=== PATIENT | male | born 1960 | race Caucasian/White ===

== ENCOUNTER 2017-08-26 20:20 | Emergency (ER) | payer SELFPAY ==
[2017-08-26] MEDS ORDERED: Aspirin Low Dose CHEW TAB* 81 MG PO ONE (21:10)
--- NOTE | 2017-08-26 21:31 | RAD ---
INDICATION: Chest pain COMPARISON: May 09, 2009 TECHNIQUE: An AP portable view obtained at 2118 hours is submitted. FINDINGS: Bones/Soft Tissues: There are no acute bony findings. Cardiomediastinal: The cardiomediastinal silhouette is normal. Lungs: There are no infiltrates. Pleura: There are no pleural effusions. Other: None IMPRESSION: NO ACTIVE DISEASE.
[2017-08-26 22:14] LABS: Hematocrit 42 % (42-52); Hemoglobin 14.8 g/dl (14.0-18.0); Mean Corpuscular HGB Conc 35 g/dl (31-36); Mean Corpuscular Hemoglobin 32 pg (27-31); Mean Corpuscular Volume 89 fL (80-94); Mean Platelet Volume 7 um3 (7.4-10.4); Red Blood Count 4.68 10^6/ul (4.0-5.4); Red Cell Distribution Width 14 % (10.5-15); White Blood Count 10.9 10^3/ul (3.5-10.8)
[2017-08-26 22:29] LABS: Albumin 4.3 g/dL (3.2-5.2); BUN/Creatinine Ratio 8.6 (8-20); Calcium 9.5 mg/dL (8.6-10.3); EGFR African American 125.4 (>60); EGFR Non-African American 97.5 (>60); Magnesium 1.5 mg/dL (1.9-2.7); Potassium 2.9 mmol/L (3.5-5.0); Total Protein 7.3 g/dL (6.4-8.9)
[2017-08-26 22:31] LABS: Troponin I 0.01 ng/mL (<0.04)
[2017-08-27] MEDS ORDERED: Potassium Chlor TAB* 20 MEQ TAB.ER PO ONE (01:13)
[2017-08-27] MEDS ORDERED: KCL 10 MEQ/50 ML IVPREMIX* 10 MEQ/50 ML BAG IV ONE (01:13)
--- NOTE | 2017-08-27 02:40 | ED ---
Dheeraj Jordan Rebecca, scribed for Gilberto Salvador MD on 08/26/17 at 2043 . HPI Chest Pain - HPI Summary HPI Summary: Pt is a 57 y/o M BIBA who presents to ED c/o CP. Pain began at approximately 1330 and was initially intermittent, though it is now constant. Episodes would last about 20 seconds, then resolve for a few minutes. Pain is diffuse and currently moderate, ranked 7/10. Pain characterized as "muscles mercedes" and "pain that makes you want to cringe up and yell." [place] route [place] [facility] pt was given fluids, Zofran and Benadryl. Was not given ASA or NTG. Sx aggravated by exertion, alleviated by nothing, unchanged by deep breaths. Additionally c/o diaphoresis at onset of symptoms and N/V with about 10 episodes of emesis. Notes bilateral UE and LE tingling and myalgias. Denies SOB. SHx current smoker , has been smoking for 39 years. - History of Current Complaint Chief Complaint: EDChestPainROMI Hx Obtained From: Patient Onset/Duration: Still Present Time of Onset: 13:30 Current Severity: Moderate Pain Intensity: 7 Pain Scale Used: 0-10 Numeric Chest Pain Location: Diffuse Chest Pain Radiates: No Character: Pressure/Squeezing, Other: - "muscles mercedes" Aggravating Factor(s): Exertion Alleviating Factor(s): Nothing Associated Signs and Symptoms: Positive: Diaphoresis, Nausea, Vomiting, Other: - Bilateral UE and LE tingling, myalgias - Allergy/Home Medications Allergies/Adverse Reactions: Allergies Allergy/AdvReac Type Severity Reaction Status Date / Time Erythromycin Allergy Hives/Diff. Verified 08/26/17 20:41 Breathing/I tching Tetracyclines & Related Allergy GI Upset Verified 08/26/17 20:41 PMH/Surg Hx/FS Hx/Imm Hx Endocrine/Hematology History: Denies: Hx Diabetes Cardiovascular History: Reports: Hx Hypercholesterolemia, Hx Hypertension GI History: Reports: Hx Gastroesophageal Reflux Disease History: Reports: Other Problems/Disorders - Hemorrhoids Neurological History: Reports: Other Neuro Impairments/Disorders - Vertigo Infectious Disease History: No Infectious Disease History: Denies: Traveled Outside the [place] in Last 30 Days - Family History Known Family History: Positive: Hypertension, Other - Breast CA, multiple myeloma, polyneuropathy - Social History Alcohol Use: Occasionally Substance Use Type: Reports: Prescribed Smoking Status (MU): Current Every Day Smoker Review of Systems Positive: Skin Diaphoresis Positive: Chest Pain Negative: Shortness Of Breath Positive: Vomiting, Nausea Positive: Myalgia Neurological: Other - Bilateral UE and LE tingling All Other Systems Reviewed And Are Negative: Yes Physical Exam - Summary Physical Exam Summary: Appearance: Well-appearing, Well-nourished Skin: Warm, dry, no diaphoresis Eyes: Normal ENT: Normal Neck: Supple, nontender Respiratory: Clear to auscultation Cardiovascular: Normal, Normal S1 and S2, no murmurs Abdomen: Soft, nontender Bowel: Present Musculoskeletal: Normal, Strength/ROM Intact, Normal pulses in the bilateral radial and tibial areas Neurological: Normal, A&Ox3 Psychiatric: Normal Triage Information Reviewed: Yes Vital Signs On Initial Exam: Initial Vitals Temp Pulse Resp BP Pulse Ox 97.6 F 76 20 139/87 99 08/26/17 20:32 08/26/17 20:32 08/26/17 20:32 08/26/17 20:32 08/26/17 20:32 Vital Signs Reviewed: Yes Diagnostics - Vital Signs Vital Signs Temp Pulse Resp BP Pulse Ox 08/26/17 20:32 97.6 F 76 20 139/87 99 - Laboratory Lab Results: Lab Results 08/26/17 08/26/17 08/26/17 Range/Units 22:04 22:04 22:04 WBC 10.9 H (3.5-10.8) 10^3/ul RBC 4.68 (4.0-5.4) 10^6/ul Hgb 14.8 (14.0-18.0) g/dl Hct 42 (42-52) % MCV 89 (80-94) fL MCH 32 H (27-31) pg MCHC 35 (31-36) g/dl RDW 14 (10.5-15) % Plt Count 205 (150-450) 10^3/ul MPV 7 L (7.4-10.4) um3 Neut % (Auto) 79.0 (38-83) % Lymph % (Auto) 16.5 L (25-47) % Stoddard % (Auto) 3.6 (1-9) % Eos % (Auto) 0.1 (0-6) % Baso % (Auto) 0.8 (0-2) % Absolute Neuts (auto) 8.6 H (1.5-7.7) 10^3/ul Absolute Lymphs (auto) 1.8 (1.0-4.8) 10^3/ul Absolute Monos (auto) 0.4 (0-0.8) 10^3/ul Absolute Eos (auto) 0 (0-0.6) 10^3/ul Absolute Basos (auto) 0.1 (0-0.2) 10^3/ul Absolute Nucleated RBC 0 10^3/ul Nucleated RBC % 0 INR (Anticoag Therapy) 0.97 (0.89-1.11) APTT 28.8 (26.0-36.3) seconds Sodium 129 L (133-145) mmol/L Potassium 2.9 L (3.5-5.0) mmol/L Chloride 95 L (101-111) mmol/L Carbon Dioxide 26 (22-32) mmol/L Anion Gap 8 (2-11) mmol/L BUN 7 (6-24) mg/dL Creatinine 0.81 (0.67-1.17) mg/dL Est GFR ( Amer) 125.4 (>60) Est GFR (Non-Af Amer) 97.5 (>60) BUN/Creatinine Ratio 8.6 (8-20) Glucose 103 H (70-100) mg/dL Calcium 9.5 (8.6-10.3) mg/dL Magnesium 1.5 L (1.9-2.7) mg/dL Total Bilirubin 1.00 (0.2-1.0) mg/dL AST 17 (13-39) U/L ALT 23 (7-52) U/L Alkaline Phosphatase 69 (34-104) U/L CK-MB (CK-2) 2.0 (0.6-6.3) ng/mL Troponin I 0.01 (<0.04) ng/mL Total Protein 7.3 (6.4-8.9) g/dL Albumin 4.3 (3.2-5.2) g/dL Globulin 3.0 (2-4) g/dL Albumin/Globulin Ratio 1.4 (1-3) Blood Type Antibody Screen 08/26/17 08/27/17 Range/Units 22:04 00:07 WBC (3.5-10.8) 10^3/ul RBC (4.0-5.4) 10^6/ul Hgb (14.0-18.0) g/dl Hct (42-52) % MCV (80-94) fL MCH (27-31) pg MCHC (31-36) g/dl RDW (10.5-15) % Plt Count (150-450) 10^3/ul MPV (7.4-10.4) um3 Neut % (Auto) (38-83) % Lymph % (Auto) (25-47) % Stoddard % (Auto) (1-9) % Eos % (Auto) (0-6) % Baso % (Auto) (0-2) % Absolute Neuts (auto) (1.5-7.7) 10^3/ul Absolute Lymphs (auto) (1.0-4.8) 10^3/ul Absolute Monos (auto) (0-0.8) 10^3/ul Absolute Eos (auto) (0-0.6) 10^3/ul Absolute Basos (auto) (0-0.2) 10^3/ul Absolute Nucleated RBC 10^3/ul Nucleated RBC % INR (Anticoag Therapy) (0.89-1.11) APTT (26.0-36.3) seconds Sodium (133-145) mmol/L Potassium (3.5-5.0) mmol/L Chloride (101-111) mmol/L Carbon Dioxide (22-32) mmol/L Anion Gap (2-11) mmol/L BUN (6-24) mg/dL Creatinine (0.67-1.17) mg/dL Est GFR ( Amer) (>60) Est GFR (Non-Af Amer) (>60) BUN/Creatinine Ratio (8-20) Glucose (70-100) mg/dL Calcium (8.6-10.3) mg/dL Magnesium (1.9-2.7) mg/dL Total Bilirubin (0.2-1.0) mg/dL AST (13-39) U/L ALT (7-52) U/L Alkaline Phosphatase (34-104) U/L CK-MB (CK-2) (0.6-6.3) ng/mL Troponin I 0.01 (<0.04) ng/mL Total Protein (6.4-8.9) g/dL Albumin (3.2-5.2) g/dL Globulin (2-4) g/dL Albumin/Globulin Ratio (1-3) Blood Type B Positive Antibody Screen Negative Result Diagrams: 08/26/17 22:04 08/26/17 22:04 Lab Statement: Any lab studies that have been ordered have been reviewed, and results considered in the medical decision making process. - Radiology CXR Xray Interpretation: No Acute Changes - NO ACTIVE DISEASE. ED physician reviewed radiology report and agrees. Radiology Interpretation Completed By: Radiologist - EKG 2113 Cardiac Rate: NL - 67 bpm EKG Rhythm: Sinus Rhythm EKG Interpretation: Normal Re-Evaluation - Re-Evaluation First Eval Re-Evaluation Time: 01:22 Comment: Pt is doing well, he is chest pain free. Will get potassium supplementation and recommend cardiology followup. Chest Pain Course/Dx - Course Assessment/Plan: pt feels better after medicatoins, no repeat episodes of CP, pain free now. instructed to fu with rental coordinator , agrees to and unddrstnads dc instructions. HEART score of 2, very low clinical suspicion for ACS. ekg wnl. - Diagnoses Provider Diagnoses: Chest pain, Hypokalemia Discharge - Discharge Plan Condition: Improved Disposition: HOME Patient Education Materials: Chest Pain (ED) Referrals: No Primary Care Phys,NOPCP [Primary Care Provider] - Ford Vallejo MD [Medical Doctor] - John Felix MD [Medical Doctor] - Additional Instructions: PLEASE MAKE AN APPOINTMENT FIRST THING IN THE MORNING TO BE SEEN BY A MASKING MACHINE FEEDER WITHIN 1 WEEK PLEASE RETURN TO THE EMERGENCY ROOM IF YOU HAVE ANY WORSENING OR CONCERNING SYMPTOMS The documentation as recorded by the Dheeraj villegas Rebecca accurately reflects the service I personally performed and the decisions made by me, Gilberto Salvador MD.
[2017-08-27 02:55] VITALS: BP 128/82
== END 2017-08-27 02:53 | disposition home or self-care (01) ==
LOC: ED 20:20
DX: R07.9 Chest pain, unspecified (principal); E87.6 Hypokalemia; R11.2 Nausea with vomiting, unspecified; F17.210 Nicotine dependence, cigarettes, uncomplicated
CPT/HCPCS: 36415; 71010; 80053; 82553; 83735; 84484; 85025; 85610; 85730; 86850; 86900; 86901; 93005; 99285; A9270-GY; J3480